=== PATIENT | male | born 1950 | race Caucasian/White ===

== ENCOUNTER → 2023-08-01 10:44 | Outpatient (REF) | payer MEDICARE, SELFPAY | LOC: HWRAD 10:44 | PROVIDERS: ATTENDING PHYSICIAN Physician Assistant Medical | DX: Z00.00 Encounter for general adult medical examination without abnormal findings (principal) | CPT/HCPCS: 73130 ==

== ENCOUNTER → 2023-12-15 06:36 | Day surgery (SDC) | payer MEDICARE, SELFPAY | LOC: GI 06:36 | PROVIDERS: ATTENDING PHYSICIAN Internal Medicine | DX: K22.70 Barrett's esophagus without dysplasia (principal); K29.70 Gastritis, unspecified, without bleeding; K21.9 Gastro-esophageal reflux disease without esophagitis; K44.9 Diaphragmatic hernia without obstruction or gangrene; K31.7 Polyp of stomach and duodenum; Z13.810 Encounter for screening for upper gastrointestinal disorder | CPT/HCPCS: 43251; 88305; 88342 ==

== ENCOUNTER → 2024-01-01 09:11 | Outpatient (REF) | payer MEDICARE, SELFPAY | LOC: DHVS 09:11 | PROVIDERS: ATTENDING PHYSICIAN Surgery Vascular Surgery; FAMILY PHYSICIAN Physician Assistant Medical | DX: I71.40 Abdominal aortic aneurysm, without rupture, unspecified (principal) | CPT/HCPCS: 76770 ==

== ENCOUNTER 2024-02-12 20:39 | Emergency (ER) | payer MEDICARE, SELFPAY ==
[2024-02-12 21:12] VITALS: BP 160/94
[2024-02-12 21:28] LABS: % Basophils 0.7 % (0-2); % Eosinophils 5.4 % (0-6); % Immature Granulocytes 0.7 % (0-0.5); % Lymphocytes 30.1 % (20.5-51.1); % Monocytes 8.7 % (1.7-9.3); % Neutrophils 54.4 % (42.2-75.2); Absolute Basophils 0.1 10^3/uL (0-0.2); Absolute Eosinophils 0.4 10^3/uL (0-0.7); Absolute Immature Granulocytes 0.1 10^3/uL (0-0.05); Absolute Lymphocytes 2.2 10^3/uL (1.2-3.4); Absolute Monocytes 0.7 10^3/uL (0.1-0.6); Hematocrit 42.2 % (39.0-52.0); Hemoglobin 14.6 g/dL (13.0-18.0); Mean Corp Hgb Conc. 34.6 g/dL (33.0-37.0); Mean Corpuscular Hgb 30.7 pg (27.0-31.0); Mean Corpuscular Volume 88.7 fL (80.0-94.0); Mean Platelet Volume 9.1 fL (7.4-10.4); Nucleated Red Blood Cells % 0 % (-); Platelet Count 203 10^3/uL (130-400); Red Blood Cell Count 4.76 10^6/uL (4.70-6.10); Red Cell Dist. Width 12.1 % (11.5-14.5); White Blood Cell Count 7.4 10^3/uL (4.8-10.8)
[2024-02-12 21:47] LABS: ALT (SGPT) 30 U/L (0-50); AST (SGOT) 32 U/L (17-59); Albumin 4.9 g/dl (3.5-5.0); Alkaline Phosphatase 90 U/L (38-126); Blood Urea Nitrogen 24 mg/dl (9-20); Calcium 9.7 mg/dl (8.4-10.2); Carbon Dioxide 24 mmol/L (22-30); Chloride 105 mmol/L (98-107); Glucose 105 mg/dl (70-99); Potassium 4.7 mmol/L (3.5-5.1); Sodium 140 mmol/L (135-145); Total Bilirubin 0.4 mg/dl (0.2-1.3)
[2024-02-12 21:54] LABS: NT-proBNP < 20.0 pg/ml; Troponin I 0.013 ng/ml
[2024-02-13 01:54] VITALS: BP 140/80
[2024-02-13 02:24] VITALS: BP 153/86
[2024-02-13 02:28] VITALS: BMI 33.0
--- NOTE | 2024-02-13 03:06 | ED.GENMED ---
History of Present Illness
General
Chief Complaint: Blood Pressure Problem
Time Seen by Provider: 02/13/24 02:54
History of Present Illness
History of Present Illness:
74-year-old male presents to the emergency department for evaluation of markedly elevated blood pressure. Of note his also presented to the ER today for similar complaint. Blood pressure readings on home monitor were exceeding 190/110. He is
not currently medicated for hypertension. Denies any current chest pain or shortness of breath. No fevers or chills. Feels well currently.
Past History
Past History
ED Past Medical History: GERD and Hypothyroidism
Social History
Tobacco: Non-smoker
Drug: None
Personal:
Review of Systems
Review of Systems
Allergies reviewed?: Yes
All Other Systems: ROS reviewed and negative except as documented in HPI and ROS
Phy Exam
Physical Exam
Physical Exam:
GEN: Well appearing, NAD, WDWN
HEENT: Oral mucosa moist, no scleral icterus
Cardiac: Regular rate and rhythm, no murmurs
Lung: No respiratory distress, no tachypnea
MSK: No gross deformity or injuries
Skin: Good color, no pallor or jaundice, no rashes
Neuro: AO x3, moves all extremities freely
Psych: Calm, cooperative
Course
Orders/Labs/Results
Orders:
Orders
02/12/24 21:17
Electrocardiogram (*1) Urgent
Reason for Study: Other
Other Reason for Exam: Respiratory Distress
Cardiac Monitoring- Treatment ONCE
EKG- Treatment ONCE
IV Insert/Care/Rem.- Treatment PRN
O2 Therapy [RESP] Urgent
Titrate/Wean O2 to maintain O2 sat greater than (%): 93
Special Instructions: TO MAINTAIN CONTINUOUS O2 SATS >/= 93%
Pulse Ox/cont/shift [RESP] Urgent
Quantity: 1
Special Instructions: continuous pulse ox
02/12/24 21:22
Complete Blood Count/With Diff Urgent
Comprehensive Metabolic Panel Urgent
NT-proBNP Urgent
Troponin I Urgent
Abnormal Lab Results
02/12/24
21:22
Abs Immat Gran (auto) 0.1 H 10^3/uL
(0-0.05)
Absolute Monos (auto) 0.7 H 10^3/uL
(0.1-0.6)
Immature Gran % 0.7 H %
(0-0.5)
BUN 24 H mg/dl
(9-20)
Creatinine 1.4 H mg/dL
(0.7-1.3)
Glucose 105 H mg/dl
(70-99)
02/12/24 21:22
02/12/24 21:22
Vital Signs
Initial and Last Documented VS:
Initial Vital Signs
Temp Pulse Resp BP Pulse Ox
98.3 F 87 20 160/94 99
02/12/24 21:12 02/12/24 21:12 02/12/24 21:12 02/12/24 21:12 02/12/24 21:12
Last Documented Vital Signs
Temp Pulse Resp BP Pulse Ox
98.5 F 77 16 153/86 97
02/13/24 01:54 02/13/24 02:29 02/13/24 02:29 02/13/24 02:24 02/13/24 02:29
MDM/Problems Addressed
MDM/Problems Addressed:
Workup is unremarkable and blood pressure gradually trended down without medication, at discharge it was 133/87. He is clinically well with no signs of endorgan damage. No indication to start antihypertensives at this point, recommend primary care
follow-up
*Critical Care Note
Total Time (30-74mins, 75-104mins- exclusive of procedures): Not Applicable
ED Attending Note
-
Portions of this chart may have been created with voice recognition software.� Occasional wrong word or��sound alike� substitutions may have occurred due to the inherent limitations of voice recognition software.
Discharge Plan
Departure
Patient Disposition: Home (Routine Discharge)
Date of Disposition: 02/13/24
Time of Disposition: 03:07
Patient with high blood pressure during this ER visit?: No
Discharge Problem:
Elevated blood pressure reading
Instructions: High Blood Pressure (DC)
Prescriptions:
No Action
levothyroxine 50 MCG tablet
50 mcg PO DAILY
lansoprazole [Prevacid] 30 MG capsule,delayed release(DR/EC)
30 mg PO DAILY
Multivitamin 1 TAB
1 tab PO DAILY
valacyclovir 1 gram tablet
1,000 mg PO BID Qty: 14 0RF
Referrals:
Jeanna Carr PA-C [Family Provider] -
Activity Restrictions/Additional Instructions:
Follow up with your primary doctor in 1 week if blood pressure remains high
Interventions
Interventions:
*Risk Screen - Suicide Last Done: 02/12/24 21:12
*General Assessment Last Done: 02/12/24 21:12
*Neglect/Abuse Screening Last Done: 02/12/24 21:12
ED- Fall Risk Assessment Last Done: 02/12/24 21:12
*ED COVID-19 Vaccine History Last Done: 02/12/24 21:12
ED- Cardiac Assessment Last Done: 02/13/24 02:42
ED- Neurological Assessment Last Done: 02/13/24 02:42
ED- Pulmonary Assessment Last Done: 02/13/24 02:42
Discharge Date and Time
Print Language: AMHARIC
== END 2024-02-13 03:26 | disposition home or self-care (01) ==
LOC: EMR 20:39
PROVIDERS: Emergency Medicine; EMERGENCY PHYSICIAN Student in an Organized Health Care Education/Training Program; FAMILY PHYSICIAN Physician Assistant Medical
DX: R03.0 Elevated blood-pressure reading, without diagnosis of hypertension (principal); K21.9 Gastro-esophageal reflux disease without esophagitis; E03.9 Hypothyroidism, unspecified
CPT/HCPCS: 99284; 80053; 83880; 84484; 85025; 93005